=== PATIENT | female | born 1945 | race Caucasian/White ===

== ENCOUNTER 2018-04-17 11:11 | Outpatient (REF) | payer MEDICARE, OTHER, SELFPAY ==
[2018-04-17 22:46] LABS: HCT 45.9 % (36.0-46.0); HGB 14.9 g/dL (12.0-15.5); Mean Corp. HGB Concentration 32.5 g/dL (32.0-36.0); Mean Corpuscular Hemoglobin 29.3 pg (27.0-33.0); Mean Corpuscular Volume 90.2 fL (80-95); Mean Platelet Volume 9.7 fL (8.0-11.0); Platelet Count 207 x1000/uL (130-400); RBC 5.09 m/cumm (4.00-5.20); White Blood Cell Count 5.22 k/cumm (4.4-10.8)
[2018-04-17 23:07] LABS: Hemoglobin A1C 5.3 % (4.5-6.2)
[2018-04-17 23:37] LABS: ALT 26 U/L (12-78); AST 20 U/L (15-37); Albumin 3.6 g/dL (3.4-5.0); Alkaline Phosphatase 98 U/L (46-116); BUN 17 mg/dL (7-18); Bilirubin, Total 0.3 mg/dL (0.2-1.0); CREATININE 0.86 mg/dL (0.55-1.02); Calcium 8.3 mg/dL (8.5-10.1); Chloride 109 mmol/L (98-107); Glucose 80 mg/dL (70-100); Magnesium 2.2 mg/dL (1.8-2.4); Sodium 142 mmol/L (136-145); TSH (W/Ref FT4) 2.14 uIU/mL (0.358-3.74); Total Protein 6.3 g/dL (6.4-8.2); Vitamin B12 634 pg/mL (193-986)
== END 2018-04-17 11:31 ==
LOC: NCHCN 11:11
PROVIDERS: PCP Internal Medicine; Visit Provider Family Medicine
DX: R42 Dizziness and giddiness (principal); R27.9 Unspecified lack of coordination; K59.00 Constipation, unspecified; R79.89 Other specified abnormal findings of blood chemistry; E66.9 Obesity, unspecified
CPT/HCPCS: 80053; 85027; 82607; 83036; 83735; 84443

== ENCOUNTER → 2018-12-10 10:42 | Outpatient (BNVA) | payer MEDICARE, OTHER, SELFPAY | PROVIDERS: PCP Internal Medicine; Visit Provider Orthopaedic Surgery | DX: Z47.1 Aftercare following joint replacement surgery (principal); Z96.641 Presence of right artificial hip joint | CPT/HCPCS: 99213 ==

== ENCOUNTER 2019-03-06 10:18 | Outpatient (REF) | payer MEDICARE, OTHER, SELFPAY ==
[2019-03-06 22:15] LABS: Anion Gap 9.7 mmol/L (3-11); BUN 16 mg/dL (7-18); CO2 28.3 mmol/L (21.0-32.0); CREATININE 0.87 mg/dL (0.55-1.02); Calcium 9.3 mg/dL (8.5-10.1); Calculated LDL 88 mg/dL; Chloride 108 mmol/L (98-107); Cholesterol 141 mg/dL (50-200); Glucose 91 mg/dL (70-100); HDL Cholesterol 39 mg/dL (40-60); Potassium 4.1 mmol/L (3.5-5.1); Sodium 146 mmol/L (136-145); Triglyceride 72 mg/dL (30-150)
== END 2019-03-06 10:38 ==
LOC: NCHCN 10:18
PROVIDERS: PCP Family Medicine; Visit Provider Family Medicine
DX: E78.6 Lipoprotein deficiency (principal); E66.9 Obesity, unspecified
CPT/HCPCS: 80048; 80061; 83721

== ENCOUNTER 2019-06-25 11:24 | Outpatient (REF) | payer MEDICARE, OTHER, SELFPAY ==
[2019-06-25 21:25] LABS: Abs Immature Grans 0.03 k/cumm (0.0-0.09); Absolute Basophil Count 0.04 k/cumm (0.0-0.2); Absolute Eosinophil Count 0.32 k/cumm (0.0-0.7); Absolute Lymphocyte Count 1.55 k/cumm (1.2-3.4); Absolute Monocyte Count 0.68 k/cumm (0.11-0.7); Absolute Neutrophil Count 3.82 k/cumm (1.2-6.7); Basophils % 0.6; HCT 45.6 % (36.0-46.0); HGB 14.9 g/dL (12.0-15.5); Immature Grans % 0.5; Lymphocytes % 24.1; Mean Corp. HGB Concentration 32.7 g/dL (32.0-36.0); Mean Corpuscular Hemoglobin 29.4 pg (27.0-33.0); Mean Corpuscular Volume 90.1 fL (80-95); Mean Platelet Volume 9.4 fL (8.0-11.0); Monocytes % 10.6; Neutrophils % 59.2; Platelet Count 231 x1000/uL (130-400); RBC 5.06 m/cumm (4.00-5.20); RBC Distribution Width 13.6 % (11.7-14.6); White Blood Cell Count 6.44 k/cumm (4.4-10.8)
[2019-06-25 21:56] LABS: Calculated LDL 90 mg/dL; Cholesterol 150 mg/dL (50-200); HDL Cholesterol 42 mg/dL (40-60); Magnesium 2.2 mg/dL (1.8-2.4); TSH (W/Ref FT4) 2.23 uIU/mL (0.36-3.74); Triglyceride 93 mg/dL (30-150)
[2019-06-26 11:37] LABS: ALT 32 U/L (14-59); AST 20 U/L (15-37); Albumin 3.7 g/dL (3.4-5.0); Alkaline Phosphatase 116 U/L (46-116); BUN 17 mg/dL (7-18); Bilirubin, Total 0.3 mg/dL (0.2-1.0); CREATININE 0.89 mg/dL (0.55-1.02); Chloride 107 mmol/L (98-107); Glucose 92 mg/dL (70-100); Potassium 4.1 mmol/L (3.5-5.1); Sodium 145 mmol/L (136-145); Total Protein 6.6 g/dL (6.4-8.2)
== END 2019-06-25 11:44 ==
LOC: NCHCN 11:24
PROVIDERS: PCP Family Medicine; Visit Provider Family Medicine
DX: E78.6 Lipoprotein deficiency (principal); R53.83 Other fatigue; R06.02 Shortness of breath; E87.0 Hyperosmolality and hypernatremia; E66.9 Obesity, unspecified
CPT/HCPCS: 80053; 80061; 83735; 84443; 85025

== ENCOUNTER 2021-04-14 14:49 | Outpatient (REF) | payer MEDICARE, OTHER, SELFPAY ==
[2021-04-14 14:45] LABS: ALT 43 U/L (14-59); AST 20 U/L (15-37); Albumin 3.5 g/dL (3.4-5.0); Alkaline Phosphatase 97 U/L (46-116); Anion Gap 7.6 mmol/L (3-11); BUN 16 mg/dL (7-18); Bilirubin, Total 0.3 mg/dL (0.2-1.0); CO2 28.4 mmol/L (21.0-32.0); CREATININE 0.9 mg/dL (0.55-1.02); Calcium 8.4 mg/dL (8.5-10.1); Calculated LDL 79 mg/dL (<100); Chloride 109 mmol/L (98-107); Cholesterol 141 mg/dL (<200); Glucose 83 mg/dL (74-106); HDL Cholesterol 47 mg/dL (40-60); Sodium 145 mmol/L (136-145); Total Protein 6.2 g/dL (6.4-8.2); Triglyceride 77 mg/dL (<150)
== END 2021-04-14 14:50 | disposition home or self-care (01) ==
LOC: NCHCN 14:49
PROVIDERS: PCP Family Medicine; Visit Provider Family Medicine
DX: E66.9 Obesity, unspecified (principal); E78.6 Lipoprotein deficiency; Z00.00 Encounter for general adult medical examination without abnormal findings
CPT/HCPCS: 80053; 80061

== ENCOUNTER 2022-04-24 19:54 | Outpatient (REF) | payer MEDICARE, OTHER, SELFPAY ==
[2022-04-24 15:11] LABS: ALT 44 U/L (14-59); AST 32 U/L (15-37); Albumin 3.4 g/dL (3.4-5.0); Alkaline Phosphatase 97 U/L (46-116); Anion Gap 4.9 mmol/L (3-11); BUN 16 mg/dL (7-18); Bilirubin, Total 0.5 mg/dL (0.2-1.0); CO2 32.1 mmol/L (21.0-32.0); CREATININE 0.9 mg/dL (0.55-1.02); Calcium 8.8 mg/dL (8.5-10.1); Calculated LDL 72 mg/dL (<100); Chloride 108 mmol/L (98-107); Cholesterol 132 mg/dL (<200); Estimated GFR 65.44 (mL/min/1.73m2); Glucose 88 mg/dL (74-106); HDL Cholesterol 50 mg/dL (40-60); Potassium 3.4 mmol/L (3.5-5.1); Sodium 145 mmol/L (136-145); TSH (W/Ref FT4) 1.99 uIU/mL (0.36-3.74); Total Protein 6.7 g/dL (6.4-8.2); Triglyceride 53 mg/dL (<150)
[2022-04-26 05:14] LABS: Vitamin D 25 Total 23.7 ng/mL (30-100)
== END 2022-04-24 19:55 | disposition home or self-care (01) ==
LOC: NCHCN 19:54
PROVIDERS: PCP Family Medicine; Visit Provider Family Medicine
DX: E66.9 Obesity, unspecified (principal); K59.09 Other constipation; E78.6 Lipoprotein deficiency; Z13.29 Encounter for screening for other suspected endocrine disorder
CPT/HCPCS: 80053; 80061; 82306; 84443

== ENCOUNTER 2023-02-26 13:54 | Outpatient (REF) | payer MEDICARE, OTHER, SELFPAY ==
[2023-02-26 15:06] LABS: Anion Gap 5.6 mmol/L (3-11); BUN 25 mg/dL (7-18); CO2 30.4 mmol/L (21.0-32.0); CREATININE 0.9 mg/dL (0.55-1.02); Calcium 8.8 mg/dL (8.5-10.1); Chloride 110 mmol/L (98-107); Estimated GFR 65.03 (mL/min/1.73m2); Glucose 96 mg/dL (74-106); Potassium 3.9 mmol/L (3.5-5.1); Sodium 146 mmol/L (136-145)
== END 2023-02-26 13:55 | disposition home or self-care (01) ==
LOC: NCHCN 13:54
PROVIDERS: PCP Family Medicine; Visit Provider Family Medicine
DX: I10 Essential (primary) hypertension (principal)
CPT/HCPCS: 80048

== ENCOUNTER → 2023-07-18 10:51 | Outpatient (BNVA) | payer MEDICARE, OTHER, SELFPAY | PROVIDERS: PCP Family Medicine; Referring Provider Family Medicine; Visit Provider Physical Therapy Assistant | DX: R19.8 Other specified symptoms and signs involving the digestive system and abdomen (principal); R13.10 Dysphagia, unspecified | CPT/HCPCS: 99203 ==

== ENCOUNTER 2023-10-01 14:01 | Outpatient (REF) | payer MEDICARE, SELFPAY ==
--- OUTSIDE RECORDS SUMMARY | 2023-10-01 14:13 | XMS_ITS | CCD ---
Author Name Unknown Address [address] [place] [address] [phone] Organization Unknown Address [address] [place] [address] [id number] Care Team Providers Care Vegetable Farmworker Name Role Phone DANIELLAJYOTI Attending Physician [phone] Vital Signs Unknown or Not Available. Allergies Allergy Code Allergy Type Reaction Status PERCOCET 40635 Drug allergy Nausea Active CELEBREX 855825 Drug allergy ASTHMA Active IBU 491646 Drug allergy ASTHMA Active Procedures Unknown or Not Available. History of Immunizations Unknown or Not Available. Problems Unknown or Not Available. Results Unknown or Not Available. Active Medications Unknown or Not Available. Medications Administered During Visit Unknown or Not Available. Encounters Encounter Diagnosis Diagnosis Code Start Date Encounter for screening mamm ogram for malignant neoplasm of breast [id number] 04/17/2022 Social History Smoking Status Code Start Date End Date Never smoker [id number] Patient Decision Aids Unknown or Not Available. Discharge Instructions You were admitted to [facility] on 04/17/2022 13:24 with a principal diagnosis of Encounter for screening mammogram for malignant neoplasm of breast You were discharged from [facility] on 04/17/2022 13:24 Should you have any questions prior to discharge, please contact a member of your healthcare team. If you have left the hospital and have any questions, please contact your primary care physician. Chief Complaint and Reason For Visit Chief Complaint Date of Onset SCREENING Function Status Unknown or Not Available. Plan of Care Unknown or Not Available. Referral/Transition of Care Unknown or Not Available.
--- OUTSIDE RECORDS SUMMARY | 2023-10-01 14:13 | XMS_ITS | CCD ---
Author Name Unknown Address [address] [place] [address] [phone] Organization Unknown Address [address] [place] [address] [phone] Care Team Providers Care Warehouse Stock Clerk Name Role Phone DANIELLA, JYOTI Soria Attending Physician [phone] Vital Signs Unknown or Not Available. Allergies Allergy Code Allergy Type Reaction Status PERCOCET 93575 Drug allergy Nausea Active CELEBREX 584503 Drug allergy ASTHMA Active IBU 036664 Drug allergy ASTHMA Active Procedures Unknown or Not Available. History of Immunizations Unknown or Not Available. Problems Unknown or Not Available. Results Unknown or Not Available. Active Medications Unknown or Not Available. Medications Administered During Visit Unknown or Not Available. Encounters Encounter Diagnosis Diagnosis Code Start Date Screening for osteoporosis [id number] 06/15 Social History Smoking Status Code Start Date End Date Never smoker [id number] Patient Decision Aids Unknown or Not Available. Discharge Instructions You were admitted to [facility] on 06/15/2021 13:55 with a principal diagnosis of Encounter for screening for osteoporosis You were discharged from [facility] on 06/15/2021 13:55 Should you have any questions prior to discharge, please contact a member of your healthcare team. If you have left the hospital and have any questions, please contact your primary care physician. Chief Complaint and Reason For Visit Chief Complaint Date of Onset POSTMENOPAUSAL Function Status Unknown or Not Available. Plan of Care Unknown or Not Available. Referral/Transition of Care Unknown or Not Available.
--- OUTSIDE RECORDS SUMMARY | 2023-10-01 14:13 | XMS_ITS | CCD ---
Author Name Unknown Address [address] [place] [address] [phone] Organization Unknown Address [address] [place] [address] [phone] Care Team Providers Care Acid Purifier Name Role Phone JENI ACEVEDO Attending Physician [phone] JENI ACEVEDO Rounding (Secondary) Physic [place] [phone] Vital Signs Unknown or Not Available. Allergies Allergy Code Allergy Type Reaction Status PERCOCET 96550 Drug allergy Nausea Active CELEBREX 259837 Drug allergy ASTHMA Active IBU 889530 Drug allergy ASTHMA Active Procedures Unknown or Not Available. History of Immunizations Unknown or Not Available. Problems Unknown or Not Available. Results Unknown or Not Available. Active Medications Unknown or Not Available. Medications Administered During Visit Unknown or Not Available. Encounters Encounter Diagnosis Diagnosis Code Start Date Idiopathic osteoarthritis [id number] 2021 Social History Smoking Status Code Start Date End Date Never smoker [id number] Patient Decision Aids Unknown or Not Available. Discharge Instructions You were admitted to [facility] on 06/19/2022 11:39 with a principal diagnosis of Unilateral primary osteoarthritis of first carpometacarpal joint, right hand You were discharged from [facility] on 06/19/2022 00:00 Should you have any questions prior to discharge, please contact a member of your healthcare team. If you have left the hospital and have any questions, please contact your primary care physician. Chief Complaint and Reason For Visit Unknown or Not Available. Function Status Unknown or Not Available. Plan of Care Unknown or Not Available. Referral/Transition of Care Unknown or Not Available.
[2023-10-01 14:58] LABS: ALT 24 U/L (14-59); AST 20 U/L (15-37); Albumin 3.6 g/dL (3.4-5.0); Alkaline Phosphatase 98 U/L (46-116); Anion Gap 7.1 mmol/L (3-11); BUN 21 mg/dL (7-18); Bilirubin, Total 0.3 mg/dL (0.2-1.0); CO2 29.9 mmol/L (21.0-32.0); CREATININE 0.8 mg/dL (0.55-1.02); Calcium 9.3 mg/dL (8.5-10.1); Calculated LDL 66 mg/dL (<100); Chloride 109 mmol/L (98-107); Cholesterol 131 mg/dL (<200); Glucose 90 mg/dL (74-106); HDL Cholesterol 57 mg/dL (40-60); Potassium 4.2 mmol/L (3.5-5.1); Sodium 146 mmol/L (136-145); TSH 1.31 uIU/mL (0.36-3.74); Total Protein 6.7 g/dL (6.4-8.2); Triglyceride 43 mg/dL (<150)
[2023-10-01 15:20] LABS: FREE T4 0.85 ng/dL (0.76-1.46)
[2023-10-01 16:05] LABS: Vitamin D 25 Total 38.3 ng/mL (30-100)
== END 2023-10-01 14:02 | disposition home or self-care (01) ==
LOC: NCHCN 14:01
PROVIDERS: PCP Family Medicine; Visit Provider Family Medicine
DX: E78.5 Hyperlipidemia, unspecified (principal); E55.9 Vitamin D deficiency, unspecified; L65.9 Nonscarring hair loss, unspecified
CPT/HCPCS: 80053; 80061; 82306; 84439; 84443

== ENCOUNTER 2024-01-16 15:49 | Outpatient (CLI) | payer MEDICARE, OTHER, SELFPAY ==
--- NOTE | 2024-01-16 13:30 | DI.RAD_ITS ---
Exam(s) XR KNEE RT 4V AP,LAT,ARTHUR,PAT EXAM: XR KNEE RT 4V AP,LAT,ARTHUR,PAT CLINICAL HISTORY: eval R knee pain. TECHNIQUE: 2D digital imaging was performed. COMPARISON: No exams were available for comparison FINDINGS: Five views. No evidence fracture or joint effusion. No joint space narrowing. No osteophytes. No osteochondral defects. No significant osseous lesions. Small benign bone island noted in the medial femoral cond yle. Patellofemoral compartment unremarkable. IMPRESSION: No significant radiograph findings on these views of the right knee. DATA REPOSITORY: RADIATION DOSE DELIVERED:
--- NOTE | 2024-01-16 13:30 | DI.RAD_ITS ---
Exam(s) XR HIP RT AP LAT ONLY EXAM: XR HIP RT AP LAT ONLY CLINICAL HISTORY: eval right posterolateral hip pain. TECHNIQUE: 2D digital imaging was performed. COMPARISON: CR PELVIS AP from 12/07/2015 FINDINGS: Two views. There is stable position alignment of the components of the right hip prosthesis. No fracture or loo sening evident. IMPRESSION: Stable satisfactory appearance DATA REPOSITORY: RADIATION DOSE DELIVERED:
== END 2024-01-16 15:50 | disposition home or self-care (01) ==
LOC: DIORS 15:58
PROVIDERS: PCP Family Medicine; Referring Provider Family Medicine; Visit Provider Student in an Organized Health Care Education/Training Program
DX: M70.61 Trochanteric bursitis, right hip; M22.2X1 Patellofemoral disorders, right knee
CPT/HCPCS: 99214; 73502; 73564

== ENCOUNTER → 2024-01-28 11:03 | Outpatient (BNVA) | payer MEDICARE, OTHER, SELFPAY | PROVIDERS: PCP Family Medicine; Referring Provider Family Medicine | DX: M70.61 Trochanteric bursitis, right hip (principal) | CPT/HCPCS: 20610; J1010 ==

== ENCOUNTER 2024-04-03 18:08 | Outpatient (REF) | payer MEDICARE, OTHER, SELFPAY ==
[2024-04-03 16:11] LABS: Anion Gap 5.4 mmol/L (3-11); BUN 18 mg/dL (7-18); CO2 30.6 mmol/L (21.0-32.0); CREATININE 0.7 mg/dL (0.55-1.02); Chloride 109 mmol/L (98-107); Estimated GFR 87.37 (mL/min/1.73m2); Glucose 92 mg/dL (74-106); Potassium 3.8 mmol/L (3.5-5.1); Sodium 145 mmol/L (136-145)
== END 2024-04-03 18:09 | disposition home or self-care (01) ==
LOC: NCHCN 18:08
PROVIDERS: PCP Family Medicine; Visit Provider Family Medicine
DX: I10 Essential (primary) hypertension (principal)
CPT/HCPCS: 80048

== ENCOUNTER 2025-03-30 09:13 | Outpatient (REF) | payer MEDICARE, OTHER, SELFPAY ==
[2025-03-30 16:02] LABS: Anion Gap 8.1 mmol/L (3-11); BUN 17 mg/dL (7-18); CO2 28.9 mmol/L (21.0-32.0); Calcium 8.9 mg/dL (8.5-10.1); Calculated LDL 61 mg/dL (<100); Chloride 109 mmol/L (98-107); Cholesterol 124 mg/dL (<200); Estimated GFR 90.12 (mL/min/1.73m2); Glucose 90 mg/dL (74-106); HDL Cholesterol 55 mg/dL (>or=50); Potassium 3.9 mmol/L (3.5-5.1); Sodium 146 mmol/L (136-145); Triglyceride 42 mg/dL (<150); Vitamin D 25 Total 37 ng/mL (30-100)
== END 2025-03-30 09:14 | disposition home or self-care (01) ==
LOC: NCHCN 09:13
PROVIDERS: PCP Family Medicine; Visit Provider Family Medicine
DX: E78.5 Hyperlipidemia, unspecified (principal); E55.9 Vitamin D deficiency, unspecified; I10 Essential (primary) hypertension
CPT/HCPCS: 80048; 80061; 82306

== ENCOUNTER 2025-04-06 15:28 | Outpatient (REF) | payer MEDICARE, OTHER, SELFPAY | END 2025-04-06 15:29 | disposition home or self-care (01) | LOC: NCHCN 15:28 | PROVIDERS: PCP Family Medicine; Visit Provider Nurse Practitioner Family | DX: R39.15 Urgency of urination (principal); R82.89 Other abnormal findings on cytological and histological examination of urine | CPT/HCPCS: 87086 ==